=== PATIENT | female | born 1965 | race Caucasian/White ===

== ENCOUNTER → 2016-10-02 | Outpatient (CLI) | payer OTHER ==
--- NOTE | 2016-10-03 12:38 | MM ---
Reason for exam: follow-up at short interval from prior study. Last mammogram was performed 6 months ago. Physical Findings: Nurse did not find any significant physical abnormalities on exam. MG Diagnostic Mammo w CAD JR Bilateral CC and MLO view(s) were taken. Prior study comparison: April 02, 2016, bilateral MG diagnostic mammo w CAD JR. There are scattered fibroglandular densities. There is no discrete abnormality. These results were verbally communicated with the patient and result sheet given to the patient on 10/02/16. ASSESSMENT: Negative, BI-RAD 1 RECOMMENDATION: Routine screening mammogram of both breasts in 6 months. Back on schedule.
== END | disposition home or self-care (01) ==
LOC: RADMAMWWP 09:04
PROVIDERS: ATTEND Family Medicine
DX: R92.8 Other abnormal and inconclusive findings on diagnostic imaging of breast (principal)

== ENCOUNTER 2016-11-27 11:36 | Emergency (ER) | payer OTHER ==
--- NOTE | 2016-11-27 14:26 | XR ---
EXAMINATION TYPE: XR shoulder complete RT , 3 VIEWS DATE OF EXAM ORDERED: 11/27/2016 HISTORY: Pain. COMPARISON: None. FINDINGS: There are hypertrophic changes in the right AC joint. No fracture, dislocation or other ac [place] osseous lesion is seen. There is pseudocystic change in the right humeral head, an indirect sign of impingement. IMPRESSION: 1. NO ACUTE OSSEOUS LESION. 2. HYPERTROPHIC CHANGES, RIGHT AC JOINT. 3. PSEUDOCYSTIC CHANGE IN THE RIGHT HUMERAL HEAD, AN INDIRECT SIGN OF IMPINGEMENT.
--- NOTE | 2016-11-27 14:43 | ED ---
Upper Extremity HPI - General Chief Complaint: Extremity Injury, Upper Stated Complaint: right shoulder pain Time Seen by Provider: 11/27/16 13:10 Source: patient Mode of arrival: ambulatory Limitations: no limitations - History of Present Illness Initial Comments: Patient is a 51-year-old female with medical history significant for right rotator cuff repair in 2013 presenting to the emergency department with chief complaint of right shoulder pain ongoing for 2 weeks with increased pain over the last 2 days. Patient states she was stretching a pair of jeans 2 days ago when she started experiencing increased pain to her right shoulder. Patient is currently rating pain 7 out of 10, described as sharp and throbbing, exacerbated with extension, flexion, abduction and abduction. Patient denies recent illness, fevers, nausea, vomiting, shortness of breath, chest pain, or abdominal pain. Patient denies any other symptoms. Patient states she's been taking Motrin without relief. - Related Data Previous Rx's Medication Instructions Recorded HYDROcodone/APAP 5-325MG [[place] 1 tab PO Q6H PRN #12 tab 11/27/16 5-325] Allergies Allergy/AdvReac Type Severity Reaction Status Date / Time No Known Allergies Allergy Verified 11/27/16 14:25 Review of Systems ROS Statement: Those systems with pertinent positive or pertinent negative responses have been documented in the HPI. ROS Other: All systems not noted in ROS Statement are negative. Past Medical History Past Medical History: Osteoarthritis (OA) Additional Past Medical History / Comment(s): bulging discs in back History of Any Multi-Drug Resistant Organisms: None Reported Additional Past Surgical History / Comment(s): tubal surg. x 2 Past Anesthesia/Blood Transfusion Reactions: Postoperative Nausea & Vomiting ( PONV) Past Psychological History: No Psychological Hx Reported Smoking Status: Never smoker Past Alcohol Use History: None Reported Past Drug Use History: None Reported - Past Family History Father Family Medical History: Cancer Additional Family Medical History / Comment(s): colon Mother Family Medical History: Cancer Additional Family Medical History / Comment(s): ovarian General Exam Limitations: no limitations General appearance: alert, in no apparent distress Head exam: Present: atraumatic, normocephalic, normal inspection Eye exam: Present: normal appearance. Absent: scleral icterus, conjunctival injection, periorbital swelling, periorbital tenderness ENT exam: Present: normal exam, normal oropharynx, mucous membranes moist, normal external ear exam Neck exam: Present: normal inspection, full ROM. Absent: tenderness, lymphadenopathy Respiratory exam: Present: normal lung sounds bilaterally. Absent: respiratory distress, wheezes, rales, rhonchi Cardiovascular Exam: Present: normal rhythm, bradycardia, normal heart sounds. Absent: systolic murmur GI/Abdominal exam: Present: soft, normal bowel sounds. Absent: distended, tenderness Right Shoulder Exam: Present: tenderness, tenderness over AC joint. Absent: full ROM (Patient complains of pain with 90 flexion, extension, abduction, and adduction.), swelling, ecchymosis, deformity, erythema Upper Arm exam: Present: normal inspection, full ROM. Absent: tenderness, swelling Elbow exam: Present: normal inspection, full ROM. Absent: tenderness, swelling Forearm Wrist exam: Present: normal inspection, full ROM. Absent: tenderness, swelling Hand Wrist exam: Present: normal inspection, full ROM. Absent: tenderness, swelling Course Vital Signs 11/27/16 11/27/16 11:56 14:53 Temperature 98.1 F 97.2 F L Pulse Rate 54 L 62 Respiratory 17 18 Rate Blood Pressure 176/92 131/88 O2 Sat by Pulse 98 97 Oximetry Medical Decision Making - Medical Decision Making Right shoulder impingement. Right shoulder x-ray negative for fracture or dislocation. Patient provided with short course opiates and a shoulder sling and instructed to use minimally and start shoulder exercises as soon as possible. Patient instructed to follow-up with Dr. Weiner for orthopedics service. Patient agrees with treatment plan. Return parameters and discharge instructions reviewed. - Radiology Data Radiology results: report reviewed X-rays right shoulder: No acute osseous lesion. Hypertrophic changes of the right before meals joint. No fracture, dislocation or other acute osseous lesion is seen. There sutures is to change to the right humeral head, and indirect sign of impingement. Disposition Clinical Impression: Impingement syndrome of right shoulder Disposition: HOME SELF-CARE Condition: Good Instructions: Rotator Cuff Injury (ED) Additional Instructions: Continue Motrin and opiates as needed for pain. Continue ice as needed. Use sling for immobilization until immediate pain has subsided and you can start doing shoulder exercises. Follow-up with as directed. Prescriptions: HYDROcodone/APAP 5-325MG [[place] 5-325] 1 tab PO Q6H PRN #12 tab PRN Reason: Pain Referrals: Radha Naylor MD [Primary Care Provider] - 1-2 days Gregory Weiner DO [Doctor of Osteopathic Medicine] - 1-2 days Time of Disposition: 14:43
[2016-11-27 15:01] VITALS: BP 131/88; PULSE 62; RESP 18; TEMP 97.2
== END 2016-11-27 14:53 | disposition home or self-care (01) ==
LOC: EC 11:36
DX: M75.41 Impingement syndrome of right shoulder (principal); Z98.890 Other specified postprocedural states
CPT/HCPCS: 99283

== ENCOUNTER 2018-03-30 11:26 | Emergency (ER) | payer OTHER ==
[2018-03-30 11:35] VITALS: BP 180/92; PULSE 95; RESP 20; TEMP 98.2
[2018-03-30] MEDS ORDERED: DEXAMETHASONE SOD PHOSPHATE 4 MG/ML 1 ML VIAL IM STA (11:56)
[2018-03-30 13:22] LABS: ALT 33 U/L (9-52); AST 26 U/L (14-36); Albumin 3.9 g/dL (3.5-5.0); Alkaline Phosphatase 91 U/L (38-126); Anion Gap 9 mmol/L; Blood Urea Nitrogen 8 mg/dL (7-17); Calcium 9.4 mg/dL (8.4-10.2); Carbon Dioxide 25 mmol/L (22-30); Chloride 104 mmol/L (98-107); Glucose 93 mg/dL (74-99); Potassium 4.5 mmol/L (3.5-5.1); Sodium 138 mmol/L (137-145); Total Bilirubin 0.7 mg/dL (0.2-1.3); Total Protein 7.4 g/dL (6.3-8.2)
--- NOTE | 2018-03-30 13:45 | ED ---
General Adult HPI - General Chief complaint: Skin/Abscess/Foreign Body Stated complaint: Itching all over, bleeding from itching. Source: patient, RN notes reviewed, old records reviewed Mode of arrival: ambulatory Limitations: no limitations - History of Present Illness Initial comments: 52-year-old female patient with past medical history of ADHD presents in ED with pruritus on her anterior chest wall back and abdomen. Patient states that she has had this itching for approximately 2 months. Patient has been worked up for this approximately 3 times by her PCPhad some relief with medrol dose pack. Patient states that the itching began approximately 2 months ago and has been nonstop since. The pruritus is worse in her anterior chest wall, abdomen and backshe also has some itching on her arms bilaterally and in her ankles. These papules's and itching spare her palms and soles. The patient has developed some small papules in these locations which have waxed and waned over these last 2 months. The patient denies other complaints including, chest pain , shortness of breath, abdominal pain, changes in vision. Systemic: Pt denies fatigue, myalgia, fever/chills, rash. Pt denies weakness, night sweats, weight loss. Neuro: Pt denies headache, visual disturbances, syncope or pre-syncope. HEENT: Pt denies ocular discharge or irritation, otalgia, rhinorrhea, pharyngitis or notable lymphadenopathy. Cardiopulmonary: Pt denies chest pain, SOB, heart palpitations, dyspnea on exertion. Abdominal/GI: Pt denies abdominal pain, n/v/d. : Pt denies dysuria, burning w/ urination, frequency/urgency. Denies new onset urinary or bowel incontinence. MSK: Pt denies myalgia, loss of strength or function in extremities. - Related Data Home Medications Medication Instructions Recorded Confirmed Dextroamphetamine/Amphetamine 30 mg PO BID 03/30/18 03/30/18 [Adderall] Previous Rx's Medication Instructions Recorded Cephalexin [Keflex] 500 mg PO Q12HR 7 Days #14 cap 03/30/18 predniSONE 50 mg PO DAILY #5 tab 03/30/18 Allergies Allergy/AdvReac Type Severity Reaction Status Date / Time No Known Allergies Allergy Verified 03/30/18 12:08 Review of Systems ROS Statement: Those systems with pertinent positive or pertinent negative responses have been documented in the HPI. ROS Other: All systems not noted in ROS Statement are negative. Past Medical History Past Medical History: Osteoarthritis (OA) Additional Past Medical History / Comment(s): bulging discs in back History of Any Multi-Drug Resistant Organisms: None Reported Additional Past Surgical History / Comment(s): tubal surg. x 2 Past Anesthesia/Blood Transfusion Reactions: Postoperative Nausea & Vomiting ( PONV) Past Psychological History: No Psychological Hx Reported Smoking Status: Never smoker Past Alcohol Use History: None Reported Past Drug Use History: None Reported - Past Family History Father Family Medical History: Cancer Additional Family Medical History / Comment(s): colon Mother Family Medical History: Cancer Additional Family Medical History / Comment(s): ovarian General Exam - General Exam Comments Initial Comments: Constitutional: NAD, AOX3, Pt has pleasant affect. HEENT: NC/AT, trachea midline, neck supple, no lymphadenopathy. Posterior pharynx non erythematous, without exudates. External ears appear normal, without discharge. Mucous membranes moist. Eyes PERRLA, EOM intact. There is no scleral icterus. No pallor noted. Cardiopulmonary: RRR, no murmurs, rubs or gallops, no JVD noted. Lungs CTAB in anterior and posterior fowler. No peripheral edema. Abdominal exam: Abdomen soft and non-distended. Abdomen non-tender to palpation in all 4 quadrants. Bowel sounds active in LLQ. No hepatosplenomegaly. Neuro: CN II-XII grossly intact. Derm: Small, diffuse, mildly erythematous papules noted on anterior chest wall, lateral arms bilaterally, abdomen. No discernible pattern. Some scabbing from patient itching on dorsal surface of forearms. Palms and soles spared from dermatologic manifestations. No burrows noted. No dermatologic manifestations between interwebs of feet/toes. Limitations: no limitations Course Vital Signs 03/30/18 11:31 Temperature 98.2 F Pulse Rate 95 Respiratory 20 Rate Blood Pressure 180/92 O2 Sat by Pulse 99 Oximetry Medical Decision Making - Medical Decision Making 52-year-old female patient with approximately 2 month history of pruritus and small papules on her anterior chest wall, abdomen, lateral forearms, back, ankles. There are no other associated signs or symptoms, or other dermatologic manifestations. Patient denies history of ALLERGIES. Patient has been evaluated by 2 prior medical operations supervisor for this problem. Physical exam revealed small papules anterior chest wall and other areas described in the physical exam that are nonfriable, not umbilicated. Exact etiology of this dermatologic manifestation is not known. Due to the prolonged nature of this complaint it is unlikely that this was caused by an acute event. Laboratory investigations were conducted to rule out the possibility of cholestasis/ hyperbilirubinemia or uremia. The CMP was within normal limits. The patient will be discharged with Keflex and by mouth steroids. She will be treated for antibiotics due to the possibility of atypical folliculitis or cellulitis. Patient to follow up with primary care provider in one to 2 days. Patient to follow with sheet metal supervisor as soon as possible. Patient advised to change all possible irritants to her skin including detergent, sheets, etc. Case discussed with Dr. Will. Patient to return to ED if new signs or symptoms develop including, difficulty breathing, chest pain, new rash, or any other complaints. Disposition Clinical Impression: Chronic pruritus, Dermatologic problem, Dermatitis Disposition: HOME SELF-CARE Condition: Good Instructions: Contact Dermatitis (ED) Additional Instructions: Patient to adhere to previously discussed treatment plan and will take medication(s) as directed. Patient to follow up with PCP in 1-2 days. Patient to return to ED if symptoms do not improve. Prescriptions: Cephalexin [Keflex] 500 mg PO Q12HR 7 Days #14 cap predniSONE 50 mg PO DAILY #5 tab Is patient prescribed a controlled substance at d/c from ED?: No Referrals: None,Stated [Primary Care Provider] - 1-2 days
--- NOTE | 2018-03-30 14:28 | ED ---
Medical Decision Making - Medical Decision Making Pt noted to be hypertensive. No focal deficits, no weakness, no headache. Normal exam. Discussed this w/ pt. Pt verbalized understanding. Will f/u w/ PCP. - Lab Data Result diagrams: 03/30/18 12:41 Lab Results 03/30/18 Range/Units 12:41 Sodium 138 (137-145) mmol/L Potassium 4.5 (3.5-5.1) mmol/L Chloride 104 (98-107) mmol/L Carbon Dioxide 25 (22-30) mmol/L Anion Gap 9 mmol/L BUN 8 (7-17) mg/dL Creatinine 0.70 (0.52-1.04) mg/dL Est GFR (CKD-EPI)AfAm >90 (>60 ml/min/1.73 sqM) Est GFR (CKD-EPI)NonAf >90 (>60 ml/min/1.73 sqM) Glucose 93 (74-99) mg/dL Calcium 9.4 (8.4-10.2) mg/dL Total Bilirubin 0.7 (0.2-1.3) mg/dL AST 26 (14-36) U/L ALT 33 (9-52) U/L Alkaline Phosphatase 91 (38-126) U/L Total Protein 7.4 (6.3-8.2) g/dL Albumin 3.9 (3.5-5.0) g/dL Disposition Clinical Impression: Chronic pruritus, Dermatologic problem, Dermatitis Disposition: HOME SELF-CARE Condition: Good Instructions: Contact Dermatitis (ED) Additional Instructions: Patient to adhere to previously discussed treatment plan and will take medication(s) as directed. Patient to follow up with PCP in 1-2 days. Patient to return to ED if symptoms do not improve. Prescriptions: Cephalexin [Keflex] 500 mg PO Q12HR 7 Days #14 cap predniSONE 50 mg PO DAILY #5 tab Is patient prescribed a controlled substance at d/c from ED?: No Referrals: None,Stated [Primary Care Provider] - 1-2 days
== END 2018-03-30 14:19 | disposition home or self-care (01) ==
LOC: EC 11:26
DX: L29.9 Pruritus, unspecified (principal); L30.9 Dermatitis, unspecified; Z79.899 Other long term (current) drug therapy
CPT/HCPCS: 36415; 80053; 99284; 96372; J1100